=== PATIENT | female | born 1975 | race African-American/Black ===

== ENCOUNTER 2020-01-03 19:18 | Inpatient (IN) | payer OTHER ==
[2020-01-03] MEDS ORDERED: ACETAMINOPHEN TAB 325 MG TAB PO PRN (22:12)
[2020-01-03] MEDS: SODIUM CHLORIDE 0.9% 1,000 ML IV SCH (22:49)
[2020-01-03] MEDS: HALOPERIDOL 1 MG TAB PO SCH (23:17)
[2020-01-04 01:30] VITALS: BP 128/83; PULSE 55; RESP 18; TEMP 98.2
--- NOTE | 2020-01-04 08:28 | HP ---
HISTORY AND PHYSICAL HISTORY OF PRESENT ILLNESS: 44 -year-old female was transferred from [facility] today for psychiatric evaluation due to psychotic behavior, delusional behavior. She apparently took off from the hospital over at [facility] yesterday and they had to catch her. She is not sure what State she is in and she has been going to State to State saying she is looking to drive her car to [place] versus other States. Different times, she is in and out of consciousness, but she is improving with the mental status. She is refusing all kinds of care. She has been started on antibiotics for UTI. Awaiting psychiatry consult for possible mental psychiatric quiñones placement. No records are available on this patient. Apparently she may be from [place]. PAST MEDICAL HISTORY: Past medical history of possible mental disease, history of unclear. MEDICATIONS: Unclear. SOCIAL HISTORY: Unclear. REVIEW OF SYSTEMS: Fourteen point review of systems as mentioned above, otherwise negative. PHYSICAL EXAMINATION: Temp 98.2, pulse 55, respiratory 16 to 18, blood pressure 128/83, 99 on room air. Endocrine BMI is over 40. PSYCHIATRIC: She answers questions appropriately. A little bit confused at times. CARDIOVASCULAR S1, S2. LUNGS: Clear. GI: Distended due to obesity. EXTREMITIES: No cyanosis, clubbing, edema. MUSCULOSKELETAL: Range of motion full times over. ASSESSMENT AND PLAN: 1. Psychotic behavior, probable bipolar versus schizophrenia. Wait for psychiatric workup which is what she needs. 2. Continue with Keflex and Motrin. MMODL / IJN: [id number] /
[2020-01-04] MEDS: HALOPERIDOL 1 MG TAB PO SCH (09:24)
[2020-01-04] MEDS: CEPHALEXIN 250 MG CAP PO SCH ×2 (09:24→12:31)
[2020-01-04] MEDS: SODIUM CHLORIDE 0.9% 1,000 ML IV SCH (09:24)
[2020-01-04 10:23] LABS: Appearance,Urine Clear (Clear); Bacteria,Urine Rare /hpf; Bilirubin,Urine Negative (Negative); Blood,Urine Moderate (Negative); Color,Urine Yellow; Glucose,Urine (UA) Negative (Negative); Ketones,Urine Negative (Negative); Leukocyte Esterase,Urine Negative (Negative); Mucus,Urine Rare /hpf; Nitrite,Urine Negative (Negative); Protein,Urine Negative (Negative); RBC,Urine 8 /hpf (0-5); Specific Gravity,Urine 1.016 (1.001-1.035); Squamous Epithelial Cell,Urine <1 /hpf (0-4); Urobilinogen,Urine <2.0 mg/dL (<2.0); WBC,Urine 2 /hpf (0-5)
--- NOTE | 2020-01-04 13:18 | P.CNNES ---
History of Present Illness Consult date: 01/04/20 Requesting physician: Rajinder Watts Reason for Consult: AMS, psychosis History of Present Illness: Patient is a 44-year-old female, transferred from [facility] for psychiatric evaluation due to psychotic behavior, delusional behavior. As per electronic medical records, it was reported that patient apparently took off from the hospital over the [facility] yesterday and they had to catch her. She is not sure what state she is in and she has been going from state to state saying that she is looking to drive her car to [place] versus other states. At different times, she is in and out of consciousness, but she is improving with the mental status. She is refusing all kinds of care. She has been started on antibiotics for UTI. Patient apparently was exhibiting bizarre behavior yesterday. She has been petitioned. I came to see the patient. Patient was seen in room 525, and sitter Mrs. Alejo was present throughout the encounter. Patient states that she lives in [place] and was visiting from one state to another. She wanted to drive, and see different states, as she was not working. She states that she went to [facility], and was planning to go to [place]. She also states that she has to go to [place] because she has to testify in the Court. Patient states that she did not want to discuss about the court case. Patient states that her car was overworked. She got out of car, feels the car exhaust was high, she got dizzy and almost passed out. EMS was called and she was brought to the hospital, as she was acting different. Patient denies any focal symptoms, headaches. Her UA is negative. Review of records from [facility] showed urine drug screen negative UA negative. CBC with WBC 3.4, hemoglobin 11.9, platelets 204. Chem-20 with slightly elevated AST 38 and normal ALT 23. Electrolytes and renal functions normal. PT/PTT normal. CPK 791. Ethanol level negative. Carboxyhemoglobin 1.1 normal. Magnesium 1.77, TSH 3.031 normal. Patient's vit al signs were blood pressure 141/63 and a second one 121/68 with pulse 58 and patient afebrile. Chest x-ray showed post sternotomy wires with a suboptimal inspiratory effort. No definitive evidence of dea pulmonary edema, and pneumothorax. CT head without contrast on 01/01/2020 is normal. Review of Systems Patient denies headache, denies visual symptoms, numbness tingling focal weakness. Denies chest pain shortness of breath, wheezing cough. Denies abdominal pain nausea vomiting diarrhea. All other review of systems seems to be unremarkable. Past Medical History Past Medical History: No Reported History Additional Past Medical History / Comment(s): Patient unable to report history. History of Any Multi-Drug Resistant Organisms: None Reported Past Surgical History: No Surgical Hx Reported Additional Past Surgical History / Comment(s): Patient unable to report history. Past Anesthesia/Blood Transfusion Reactions: Unable to Obtain Past Psychological History: Unable to Obtain Additional Psychological History / Comment(s): Patient unable to answer. Smoking Status: Unknown if ever smoked Past Alcohol Use History: None Reported Past Drug Use History: Unable to Obtain - Past Family History Mother History Unknown: Yes Family Medical History: Unable to Obtain Father History Unknown: Yes Family Medical History: Unable to Obtain Medications and Allergies Home Medications Medication Instructions Recorded Confirmed Type Unable To Assess [Unable to Assess] 01/03/20 01/03/20 History Allergies Allergy/AdvReac Type Severity Reaction Status Date / Time Unable to Assess Allergy Verified 01/03/20 22:08 Physical Examination - Vital Signs Vital Signs: Vital Signs Temp Pulse Resp BP Pulse Ox 01/04/20 01:29 98.2 F 55 L 18 128/83 99 Intake and Output 01/03/20 01/04/20 01/04/20 22:59 06:59 14:59 Intake Total 1200 1200 Balance 1200 1200 Intake: Oral 1200 1200 Other: Voiding Method Toilet Toilet # Voids 3 1 1 Weight 102.5 kg On examination patient is a middle aged Afro-Guyanese female, in no acute distress. Patient is alert and awake, fully oriented. Patient knows that it is December 2019, and that she is in [facility] in [place]. She states she lives by herself in [place], has no children. Speech and language functions are normal. Attention and concentration and fund of knowledge appears adequate. Patient at times talks completely since a, other times appears delusional, talking about different states as above. No aphasia or dysarthria. On cranial nerve examination pupils are round and reacting, visual kessler are full, extraocular muscles are intact. Face is symmetric, tongue protrudes the midline. Palatal elevation sensation normal. Hearing and shoulder shrug normal. On muscle strength testing there is no pronator drift and the strength is normal in arms and legs distally and proximally reflexes are 1+ and plantars downgoing. Sensory touch is equal. No ataxia for [id number] testing. Tone and bulk of muscles normal. Patient apparently was veering the down back to front. During examination, patient tried to expose herself, and wanted to speak to me personally and the sitter to step out. I informed her that sitter will stay there, and recommended her to cover herself. The sitter Miss Alejo was present throughout the encounter. Results - Laboratory Findings Abnormal Lab Findings: Abnormal Labs 01/04/20 09:00 Urine Blood Moderate H Urine RBC 8 H Urine Bacteria Rare H Urine Mucus Rare H Assessment and Plan Assessment: * Altered mental status, probably due to psychosis. Neurological examination normal. Plan: * No further neurological workup indicated. * Neurologically clear for transfer to mental health unit.
[2020-01-04 14:08] VITALS: BMI 40.0
--- NOTE | 2020-01-04 16:55 | P.CN ---
Psychiatric Consult - . Consult date: 01/04/20 Consult:: IDENTIFYING DATA: The patient is 44-year-old single female referred from medicine service from [facility] for evaluation of psychotic behavior. HISTORY OF PRESENT ILLNESS: I reviewed the medical record and interviewed the patient. She was guarded, suspicious and minimally cooperative. According to record she eloped from [facility] yesterday. She talked about driving her car to the store and "some kind of air" began to blow on her and affected her chest. She is not sure but she thinks the gas may have been carbon monoxide because she felt lightheaded. She went to the emergency room where she remained for 3 days. She would not provide more information about her history of her symptoms. She would not answer questions about her mood thinking or behavior. She denied feeling depressed or anxious. She would not answer questions about psychotic symptoms such as auditory, visual or olfactory hallucinations, ideas reference, thought insertion or thought broadcasting. She denied use of alcohol or drugs. PAST PSYCHIATRIC HISTORY: She denied prior mental health treatment or prior psychiatric hospitalizations. I believe she mentioned something about mental health services while she was in the but would not answer questions. PAST MEDICAL HISTORY: She denied a history of major medical problems.. ALLERGIES: Denied. SUBSTANCE USE HISTORY: She denied history of substance abuse problems. FAMILY PSYCHIATRIC/SUBSTANCE USE HISTORY:. She denied a family history of psychiatric or substance use problems SOCIAL HISTORY: She was guarded about her history. She talked about moving from state to state. She was born in [place] lived in [place]. She came to [place] for an unexplained reason. She referred herself as just visiting with plans to return to [place] for "a court case." She is single and has no children. She served in the [employer] for 8 years and received an honorable discharge. She would not answer questions about her income. MENTAL STATUS EXAM: She presented as an obese casually groomed after Turkish female who was guarded and suspicious. She made eye contact and appeared to attend to the interview. She had psychomotor retardation but no abnormal movements. Her speech was not spontaneous and had decreased rate and rhythm. Her affect was blunted, guarded and suspicious. She did not express suicidal ideation, wishes or homicidal ideation. She denied feeling hopeless, helpless or worthless. She is angry about his continued hospitalization. She did not express clear ideas reference but she tended paranoid ideation. Her t hinking was concrete and associations were not coherent, logical goal directed. She denied hallucinations but at times she appeared to be responding to internal stimuli.. IMPRESSIONS: She is a 44-year-old single female with signs and symptoms suggestive of a psychotic disorder. She is guarded, suspicious and provided little information. She denied a history of psychiatric treatment. She should be treated on an inpatient basis with combination of psychopharmacology and multimodal therapy. DIAGNOSIS: Unspecified psychotic disorder PLAN: Complet a timely clinical certificate to accompany the petition. Transferred to psychiatric unit when medically stable.. 01/04/20 16:45
[2020-01-05] MEDS: HALOPERIDOL 1 MG TAB PO SCH ×2 (00:12→09:53)
[2020-01-05] MEDS: CEPHALEXIN 250 MG CAP PO SCH ×3 (00:12→12:40)
[2020-01-05] MEDS: SODIUM CHLORIDE 0.9% 1,000 ML IV SCH (12:39)
== END 2020-01-05 19:47 | DRG 885 ==
LOC: 5NMEDONC 19:18
PROVIDERS: ADMIT Family Medicine; ATTEND Family Medicine
DX: F29 Unspecified psychosis not due to a substance or known physiological condition (principal); Z68.41 Body mass index [BMI] 40.0-44.9, adult; N39.0 Urinary tract infection, site not specified; E66.9 Obesity, unspecified; Z71.3 Dietary counseling and surveillance
CPT/HCPCS: 81001

== ENCOUNTER 2020-01-05 19:53 | Inpatient (IN) | payer OTHER ==
[2020-01-05 22:07] VITALS: BP 141/87; PULSE 53
[2020-01-06] MEDS ORDERED: MAG HYDROX/AL HYDROX/SIMETH 30 ML CUP PO PRN (07:34)
[2020-01-06] MEDS ORDERED: MAGNESIUM HYDROXIDE 2,400 MG/10 ML CUP PO PRN (07:34)
[2020-01-06] MEDS ORDERED: LORazepam 1 MG TAB PO PRN (07:34)
[2020-01-06] MEDS ORDERED: ACETAMINOPHEN TAB 325 MG TAB PO PRN (07:34)
[2020-01-06] MEDS: NICOTINE 14MG/24HR PATCH TRANSDERM SCH (09:42)
--- NOTE | 2020-01-06 13:59 | P.HP ---
Psychiatric H&P - . H&P Date: 01/06/20 History & Physical: Allergies Allergy/AdvReac Type Severity Reaction Status Date / Time Unable to Assess Allergy Verified 01/03/20 22:08 Vital Signs Temp 97.6 F 01/05/20 21:29 Pulse 53 L 01/05/20 21:29 Resp 16 01/05/20 21:29 BP 141/87 01/05/20 21:29 Pulse Ox 99 01/05/20 21:29 Intake & Output 01/05/20 01/06/20 01/06/20 18:59 06:59 18:59 Weight 100.698 kg 01/06/20 10:39 IDENTIFYING DATA: The patient is 44-year-old single female referred from medicine service from [facility] for evaluation of psychotic behavior. Patient is single and is currently homeless and living in hotels and has no kids and collects a pension. HISTORY OF PRESENT ILLNESS: Patient was initially transferred to medical floors and seen by Dr. Loo for psychiatric consultation. As taken from Dr. Tim lambert's psychiatric consult dictation note, "Patient was guarded, suspicious and minimally cooperative. According to record she eloped from [facility]. She talked about driving her car to the store and "some kind of air" began to blow on her and affected her chest. She is not sure but she thinks the gas may have been carbon monoxide because she felt lightheaded. She went to the emergency room where she remained for 3 days. She would not provide more information about her history of her symptoms. She would not answer questions about her mood thinking or behavior. She denied feeling depressed or anxious. She would not answer questions about psychotic symptoms such as auditory, visual or olfactory hallucinations, ideas reference, thought insertion or thought broadcasting" Patient was seen today by chief writer and appeared to have poor hygiene and grooming. Patient was endorsing paranoia and was guarded/evasive during conversation. Patient was making bizarre hand gestures at times and making inappropriate statements or chief writer. Patient spoke about "exhaust coming out of my car" and states that she was inhaling it and took it to several different mechanics before coming into the hospital for feeling "dizzy". She states that she felt "overheated" and also a "pounding in my body". She also spoke about having to go do "cord in [place]". She appeared to have poor insight and judgment and was refusing medications. She states [place] however did not explain why or where she came from. She states her sleep is "okay" and claims to have a fair mood. She denies any auditory or visual hallucinations, denies any suicidal or homicidal ideations intent or plan. Patient was alert and oriented 3 today. She denied any recreational drug use however claims to use cigarettes. PAST PSYCHIATRIC HISTORY: She denied prior mental health treatment or prior psychiatric hospitalizations and was fairly guarded about her past. PAST MEDICAL HISTORY: She denied a history of major medical problems.. ALLERGIES: Denied. SUBSTANCE USE HISTORY: She denied history of substance abuse problems. She claims that she smokes cigarettes daily. FAMILY PSYCHIATRIC/SUBSTANCE USE HISTORY: She denied a family history of psychiatric or substance use problems SOCIAL HISTORY: She was guarded about her history. She talked about moving from state to state. She was born in [place] lived in [place]. She came to [place] for an unexplained reason. She referred herself as just visiting with plans to return to [place] for "a court case." She is single and has no children. She served in the [employer] for 8 years and received an honorable discharge. She claims that she collects a pension. MENTAL STATUS EXAM: General Appearance: Patient appears to be stated age is alert, difficult to redirect and inappropriate at times. Paranoid/evasive. Patient appears to have poor hygiene and grooming. Behavior: Patient is seated without any agitated behavior. Paranoid/evasive. Inappropriate. Speech: Patient's speech is fluent and nonpressured. Mood/Affect: Patient reports their mood is "okay", affect is congruent and constricted. Suicidality/Homicidality: Patient denies having any homicidal ideation intent or plan. Denies any suicidal ideations intent or plan Perceptions: Patient denies any visual hallucinations and denies any auditory hallucinations Though content/process: Endorsed several different delusions, religiously preoccupied, argumentative. Memory and concentration: AOX3, grossly intact for the purposes of this session. Can spell "WORLD" backwards Judgment and insight: poor STRENGTHS/WEAKNESSES: strength is that patient is resilient. Weakness is that patient has poor judgment and is impulsive INTELLECT: average IMPRESSIONS: Psychosis unspecified [place] nicotine dependence PLAN: -Patient is admitted under involuntary status to [facility] for stabilization of psychiatric symptoms and safety. Patient refused to sign for medication consent and was placed in chart. A second certification was completed and along with petition will be filed for court. -Medications : Will start patient on paliperidone by mouth 3 mg daily at bedtime for psychosis. -Ativan and Geodon PRN for agitation/aggression -UDS, UA and routine blood work currently pending. -Patient was informed of the risks, benefits and side effects of the medication and patient verbally consented to taking the medications. Patient signed med consent form and was placed in chart. -Internal Medicine consult to perform medical evaluation and physical. -NRT - nicotine patch -SW on board for discharge planning. Encourage patient to participate in groups to work on coping skills. Will await court hearing and deferral date. 01/06/20 10:43 01/06/20 10:44 01/06/20 13:53
[2020-01-06] MEDS: PALIPERIDONE 3 MG TAB.ER.24 PO SCH (22:15)
[2020-01-07] MEDS: NICOTINE 14MG/24HR PATCH TRANSDERM SCH (09:11)
--- NOTE | 2020-01-07 10:06 | P.PN ---
Progress Note - Text Progress Note Date: 01/07/20 Interval History: Patient was seen laying down in her bed this morning and was initially resistant and questioned who public relations writer was in his "credentials" before being agreeable to speak with public relations writer in the office. Patient was mumbling and speaking to herself on the way to the office. Patient was responding to internal stimuli in the office and answered questions inappropriately at times. Patient was also making bizarre hand gestures in touching her toes and shoes. She continues to be paranoid and guarded/evasive during conversation. She continues to demonstrate poor insight and judgment and claims that she is refusing her medications until "I see my day in court". She claims that she slept last night and has not been going to groups and not interacting with other patients. She continues to have poor hygiene and grooming. At this time patient denies any suicidal or homical ideations, intent or plan. Patient denies any auditory, visual hallucinations. Patient denies any side effects from the medications and has been compliant with meds. Mental Status Exam: General Appearance: Patient appears to be stated age is alert, difficult to redirect and inappropriate at times. Responding to internal stimuli. Patient appears to have poor hygiene and grooming. Behavior: Patient is seated without any agitated behavior. Paranoid/evasive. Responding to internal stimuli. Speech: Patient's speech is fluent and nonpressured. Mood/Affect: Patient reports their mood is "fine", affect is congruent and constricted. Suicidality/Homicidality: Patient denies having any homicidal ideation intent or plan. Denies any suicidal ideations intent or plan Perceptions: Patient denies any visual hallucinations and denies any auditory hallucinations Though content/process: Endorsed several different delusions, religiously preoccupied, argumentative. Paranoid. Memory and concentration: AOX3, grossly intact for the purposes of this session. Judgment and insight: poor Assessment Psychosis unspecified Nicotine dependence Plan: -Patient continues to meet criteria for inpatient psychiatric admission for symptom stabilization and safety. Patient has refused to sign for voluntary admission and is refusing medications and treatment. Patient refused to sign for medication consent form and is placed in chart. Certification and petition were filed for court and awaiting hearing date and deferral date. -Medications: Continue with paliperidone by mouth 3 mg daily at bedtime for psychosis. -When necessary Ativan and Geodon for agitation/aggression. -UDS, UA and routine blood work are currently being refused by patient. -NRT - nicotine patch -SW on board for discharge planning. Encouraged the patient to participate in milieu. Will await court hearing and deferral date.
--- NOTE | 2020-01-07 16:11 | CONS ---
CONSULTATION DATE OF SERVICE: 01/07/2020 This white female was admitted with psychotic behavior, delusional, bizarre behavior, transferred from another hospital for psychiatric recommendations. She refused any medications and blood work over there. She tried to run out of the hospital and was caught by Security, at which time she was sent back over her psychotic care; cannot get a clear idea where she is from. She has mentioned 3 or 4 states she is trying to get to and is very confused about what she has been doing. She is living in hotels. No kidneys. Collects a pension. Single, as far as we can tell. She states she is diabetic, but we have not been able to confirm taking metformin at home because she has refused any blood work. Psych history: She says there is nothing wrong with her except for some possible diabetes. DENIES ANY ALLERGIES TO MEDICINES. Her behavior is paranoid, evasive, inappropriate. CARDIOVASCULAR: S1, S2. LUNGS: Clear. GI: Distended. Obesity. ENDOCRINE: BMI is over 40. ASSESSMENT: Possible psychotic behavior with bizarre ideations. Try to get blood work ordered on her. Await psych consult. Medically I think she is stable. Vital signs are okay. Please see further orders. MMODL / IJN: [id number] /
[2020-01-07] MEDS: PALIPERIDONE 3 MG TAB.ER.24 PO SCH (20:10)
[2020-01-08] MEDS: NICOTINE 14MG/24HR PATCH TRANSDERM SCH (09:49)
--- NOTE | 2020-01-08 10:10 | P.PN ---
Progress Note - Text Progress Note Date: 01/08/20 Interval History: Patient was seen laying down in her bed this morning and was argumentative and hostile with speech writer. She was noted to be responding to internal stimuli. She had a loud tone of voice and told the speech writer that "if you're not going to discharge me today and there is nothing to talk about and I'm not talking to you" and then proceeded to tell speech writer to leave her room and closed the door, ending the encounter. Mental Status Exam: General Appearance: Patient appears to be stated age is alert, difficult to redirect, demanding. Responding to internal stimuli. Patient appears to have poor hygiene and grooming. Behavior: Patient is seated without any agitated behavior. Paranoid/evasive. Demanding. Speech: Patient's speech is fluent and nonpressured. Mood/Affect: Unable to assess Suicidality/Homicidality: Unable to assess Perceptions: Unable to assess Though content/process: argumentative. Paranoid. Memory and concentration: AOX3, grossly intact for the purposes of this session. Judgment and insight: poor Assessment Psychosis unspecified Nicotine dependence Plan: -Patient continues to meet criteria for inpatient psychiatric admission for symptom stabilization and safety. Patient has refused to sign for voluntary admission and is refusing medications and treatment. Patient refused to sign for medication consent form and is placed in chart. Deferral date set for today and full court hearing to be determined. -Medications: Continue with paliperidone by mouth 3 mg daily at bedtime for psychosis. Patient is currently refusing this medication. -When necessary Ativan and Geodon for agitation/aggression. -UDS, UA and routine blood work are currently being refused by patient. -NRT - nicotine patch -SW on board for discharge planning. Encouraged the patient to participate in milieu. Deferral date set for today and full court hearing to be determined.
[2020-01-08] MEDS: PALIPERIDONE 3 MG TAB.ER.24 PO SCH (21:44)
[2020-01-09 05:05] VITALS: RESP 18
--- NOTE | 2020-01-09 08:00 | P.PN ---
Progress Note - Text Progress Note Date: 01/09/20 Interval History: Patient was seen laying down in her bed this morning and was resistant once a gain to speak with engineering technical writer. She was noted to be responding to internal stimuli and speaking to herself at times. Patient once again was demanding to be discharged from the hospital. She continues to have poor insight and judgment. She demanded several times to also speak with the "patient rights advocate" claiming that she is being held in the hospital "against my will". Employee Benefits Coordinator explained the process and how Court hearing will be held next week and patient continues to have a poor understanding of this and was requesting to speak to her marriage and family therapist. Patient abruptly ended the encounter and told engineering technical writer to get out of her room. Mental Status Exam: General Appearance: Patient appears to be stated age is alert, difficult to redirect, demanding. Responding to internal stimuli. Patient appears to have poor hygiene and grooming. Behavior: Patient is seated without any agitated behavior. Paranoid/evasive. Demanding. Speech: Patient's speech is fluent and nonpressured. Mood/Affect: Unable to assess Suicidality/Homicidality: Unable to assess Perceptions: Unable to assess Though content/process: argumentative. Paranoid. Memory and concentration: AOX3, grossly intact for the purposes of this session. Judgment and insight: poor Assessment Psychosis unspecified Nicotine dependence Plan: -Patient continues to meet criteria for inpatient psychiatric admission for symptom stabilization and safety. Patient has refused to sign for voluntary admission and is refusing medications and treatment. Patient refused to sign for medication consent form and is placed in chart. Court date set for 01/15/2020. -Medications: Continue with paliperidone by mouth 3 mg daily at bedtime for psychosis. Patient is currently refusing this medication. -When necessary Ativan and Geodon for agitation/aggression. -UDS, UA and routine blood work are currently being refused by patient. -NRT - nicotine patch -SW on board for discharge planning. Encouraged the patient to participate in milieu. Court date set for 01/15/2020.
[2020-01-09] MEDS: NICOTINE 14MG/24HR PATCH TRANSDERM SCH (09:12)
[2020-01-09] MEDS: PALIPERIDONE 3 MG TAB.ER.24 PO SCH (21:49)
[2020-01-10] MEDS: NICOTINE 14MG/24HR PATCH TRANSDERM SCH (09:50)
--- NOTE | 2020-01-10 09:53 | P.PN ---
Progress Note - Text Progress Note Date: 01/10/20 Interval History: Patient was seen laying down in her bed this morning and appeared to have poor hygiene and grooming. Patient was also appearing to respond to internal stimuli before jingle writer was able to speak to her and was speaking to herself very rapidly. Patient was directable to come to speak to jingle writer in the office and was continuing to speak herself in the hallways. The patient asked jingle writer "how his class today" and was acting bizarre and then also asked when the court date was and when jingle writer told patient that the court date was next monday then patient states that "there is nothing to talk about today than" and then abruptly ended the interview by leaving the room. Mental Status Exam: General Appearance: Patient appears to be stated age is alert, difficult to redirect, Responding to internal stimuli. Patient appears to have poor hygiene and grooming. Behavior: Patient is seated without any agitated behavior. Paranoid/evasive. Bizarre. Speech: Patient's speech is fluent and nonpressured. Mood/Affect: Unable to assess Suicidality/Homicidality: Unable to assess Perceptions: Unable to assess Though content/process: argumentative. Paranoid. Bizarre. Memory and concentration: AOX3, grossly intact for the purposes of this session. Judgment and insight: poor Assessment Psychosis unspecified Nicotine dependence Plan: -Patient continues to meet criteria for inpatient psychiatric admission for symptom stabilization and safety. Patient has refused to sign for voluntary admission and is refusing medications and treatment. Patient refused to sign for medication consent form and is placed in chart. Court date set for 01/15/2020. -Medications: Continue with paliperidone by mouth 3 mg daily at bedtime for psychosis. Patient is currently refusing this medication. -When necessary Ativan and Geodon for agitation/aggression. -UDS, UA and routine blood work are currently being refused by patient. -NRT - nicotine patch -SW on board for discharge planning. Encouraged the patient to participate in milieu. Court date set for 01/15/2020.
[2020-01-10] MEDS: PALIPERIDONE 3 MG TAB.ER.24 PO SCH (21:10)
[2020-01-10] MEDS: ZIPRASIDONE 20 MG VIAL IM PRN (21:14)
[2020-01-11 06:44] VITALS: TEMP 0
--- NOTE | 2020-01-11 09:26 | P.PN ---
Progress Note - Text Progress Note Date: 01/11/20 Interval History: Patient was seen wandering the hallways this morning and came up to the nurse's desk. Patient was asking for another towel and acknowledges scientific technical writer briefly however when scientific technical writer approached patient to speak with her patient ignored scientific technical writer several times and was responding to internal stimuli and walked away from scientific technical writer saying "I'm not talking to you". Patient received a PRN Geodon last night for agitation. Mental Status Exam: General Appearance: Patient appears to be stated age is alert, difficult to redirect, Responding to internal stimuli. Patient appears to have poor hygiene and grooming. Behavior: Patient is seated without any agitated behavior. Bizarre. Speech: Patient's speech is fluent and nonpressured. Mood/Affect: Unable to assess Suicidality/Homicidality: Unable to assess Perceptions: Unable to assess Though content/process: argumentative. Paranoid. Bizarre. Memory and concentration: AOX3, grossly intact for the purposes of this session. Judgment and insight: poor Assessment Psychosis unspecified Nicotine dependence Plan: -Patient continues to meet criteria for inpatient psychiatric admission for symptom stabilization and safety. Patient has refused to sign for voluntary admission and is refusing medications and treatment. Patient refused to sign for medication consent form and is placed in chart. Court date set for 01/15/2020. -Medications: Continue with paliperidone by mouth 3 mg daily at bedtime for psychosis. Patient is currently refusing this medication. -When necessary Ativan and Geodon for agitation/aggression. -UDS, UA and routine blood work are currently being refused by patient. -NRT - nicotine patch -SW on board for discharge planning. Encouraged the patient to participate in milieu. Court date set for 01/15/2020.
[2020-01-11] MEDS: NICOTINE 14MG/24HR PATCH TRANSDERM SCH (09:34)
[2020-01-11] MEDS: PALIPERIDONE 3 MG TAB.ER.24 PO SCH (22:43)
[2020-01-12] MEDS: NICOTINE 14MG/24HR PATCH TRANSDERM SCH (09:20)
--- NOTE | 2020-01-12 09:46 | P.PN ---
Progress Note - Text Progress Note Date: 01/12/20 Interval History: Patient was seen laying down in her bed this morning and appeared to be asleep and difficult to awaken however patient was continuing to be responding to internal stimuli and was difficult to direct during conversation. Patient refused to answer questions and asked typewriter mechanic to leave because "it's not my court date so leave me alone". Patient is continuing to refuse her medications. Mental Status Exam: General Appearance: Patient appears to be stated age is lethargic, difficult to redirect, Responding to internal stimuli. Patient appears to have poor hygiene and grooming. Behavior: Patient is seated without any agitated behavior. Bizarre. Speech: Patient's speech is fluent and nonpressured. Mood/Affect: Unable to assess Suicidality/Homicidality: Unable to assess Perceptions: Unable to assess Though content/process: argumentative. Paranoid. Bizarre. Memory and concentration: AOX3, grossly intact for the purposes of this session. Judgment and insight: poor Assessment Psychosis unspecified Nicotine dependence Plan: -Patient continues to meet criteria for inpatient psychiatric admission for symptom stabilization and safety. Patient has refused to sign for voluntary admission and is refusing medications and treatment. Patient refused to sign for medication consent form and is placed in chart. Court date set for 01/15/2020. -Medications: Continue with paliperidone by mouth 3 mg daily at bedtime for psychosis. Patient is currently refusing this medication. -When necessary Ativan and Geodon for agitation/aggression. -UDS, UA and routine blood work are currently being refused by patient. We'll attempt to reorder once again today. -NRT - nicotine patch -SW on board for discharge planning. Encouraged the patient to participate in milieu. Court date set for 01/15/2020.
[2020-01-12] MEDS: ZIPRASIDONE 20 MG VIAL IM PRN (13:29)
[2020-01-12] MEDS: PALIPERIDONE 3 MG TAB.ER.24 PO SCH (22:07)
[2020-01-13] MEDS: NICOTINE 14MG/24HR PATCH TRANSDERM SCH (09:30)
--- NOTE | 2020-01-13 11:31 | P.PN ---
Progress Note - Text Progress Note Date: 01/13/20 Interval History: Patient was seen laying down in her bed this morning and appeared to be more a wake today however was continuing to be responding to internal stimuli and was difficult to engage in the conversation. Patient was talking to herself. She asked what day was today and procedure writer responded that it is Monday and patient states that "but it was Monday 2 days ago so you are lying to me". She states that she is waiting until court to talk to procedure writer and claims that "I'm not answering any questions you can leave now". Patient is continuing to refuse her medications. Mental Status Exam: General Appearance: Patient appears to be stated age is lethargic, difficult to redirect, Responding to internal stimuli. Patient appears to have poor hygiene and grooming. Behavior: Patient is seated without any agitated behavior. Bizarre. Speech: Patient's speech is fluent and nonpressured. Mood/Affect: Unable to assess Suicidality/Homicidality: Unable to assess Perceptions: Unable to assess Though content/process: argumentative. Paranoid. Bizarre. Memory and concentration: AOX3, grossly intact for the purposes of this session. Judgment and insight: poor Assessment Psychosis unspecified Nicotine dependence Plan: -Patient continues to meet criteria for inpatient psychiatric admission for symptom stabilization and safety. Patient has refused to sign for voluntary admission and is refusing medications and treatment. Patient refused to sign for medication consent form and is placed in chart. Court date set for 01/15/2020. -Medications: Continue with paliperidone by mouth 3 mg daily at bedtime for psychosis. Patient is currently refusing this medication. -When necessary Ativan and Geodon for agitation/aggression. -UDS, UA and routine blood work are currently being refused by patient. -NRT - nicotine patch -SW on board for discharge planning. Encouraged the patient to participate in milieu. Court date set for 01/15/2020.
[2020-01-13 14:16] VITALS: BMI 39.2
[2020-01-13] MEDS: PALIPERIDONE 3 MG TAB.ER.24 PO SCH (20:03)
[2020-01-14] MEDS: NICOTINE 14MG/24HR PATCH TRANSDERM SCH (09:09)
--- NOTE | 2020-01-14 09:48 | P.PN ---
Progress Note - Text Progress Note Date: 01/14/20 Interval History: Patient was seen laying down in her bed this morning and appeared to be awake however was continuing to be responding to internal stimuli and appeared to be speaking to herself. She continues to be difficult to engage with an conversation and ignores publications writer's questions for the most part. She asked publications writer today "is it court date today" and publications writer responded saying that it was scheduled for tomorrow and patient states that okay goodbye" and turned her head around and refused to answer anymore questions. It was noted in patient's room that there are several drawings and writings on the wall made with jada. Patient continues to refuse her medications and has poor hygiene and grooming. Mental Status Exam: General Appearance: Patient appears to be stated age is alert, difficult to redirect, Responding to internal stimuli. Patient appears to have poor hygiene and grooming. Behavior: Patient is seated without any agitated behavior. Bizarre. Speech: Patient's speech is fluent and nonpressured. Mood/Affect: Unable to assess Suicidality/Homicidality: Unable to assess Perceptions: Unable to assess Though content/process: argumentative. Paranoid. Bizarre. Memory and concentration: AOX3, grossly intact for the purposes of this session. Judgment and insight: poor Assessment Psychosis unspecified Nicotine dependence Plan: -Patient continues to meet criteria for inpatient psychiatric admission for symptom stabilization and safety. Patient has refused to sign for voluntary admission and is refusing medications and treatment. Patient refused to sign for medication consent form and is placed in chart. Court date set for 01/15/2020. -Medications: Continue with paliperidone by mouth 3 mg daily at bedtime for psychosis. Patient is currently refusing this medication. -When necessary Ativan and Geodon for agitation/aggression. -NRT - nicotine patch -SW on board for discharge planning. Encouraged the patient to participate in milieu. Court date set for 01/15/2020.
[2020-01-14] MEDS: PALIPERIDONE 3 MG TAB.ER.24 PO SCH (20:33)
[2020-01-15] MEDS: NICOTINE 14MG/24HR PATCH TRANSDERM SCH (08:37)
--- NOTE | 2020-01-15 10:03 | P.PN ---
Progress Note - Text Progress Note Date: 01/15/20 Interval History: Patient was seen in her room this morning and came to the door when the sports book writer knocked on it and asked to speak with the patient. Patient was noted to be once again responding to internal stimuli speaking to herself in full conversations. She continues to be difficult to engage with an conversation and ignores sports book writer's questions for the most part. She asked sports book writer once again if it was time to go to court and spoke about wanting to speak to her parcel wrapper before she speaks to sports book writer. She states that "I don't want to talk to you unless I have my parcel wrapper now go away". Patient continues to refuse her medications and has poor hygiene and grooming. Mental Status Exam: General Appearance: Patient appears to be stated age is alert, difficult to redirect, Responding to internal stimuli. Patient appears to have poor hygiene and grooming. Behavior: Patient is seated without any agitated behavior. Bizarre. Demanding. Speech: Patient's speech is fluent and nonpressured. Mood/Affect: Unable to assess Suicidality/Homicidality: Unable to assess Perceptions: Unable to assess Though content/process: argumentative. Paranoid. Bizarre. Memory and concentration: AOX3, grossly intact for the purposes of this session. Judgment and insight: poor Assessment Psychosis unspecified Nicotine dependence Plan: -Patient continues to meet criteria for inpatient psychiatric admission for symptom stabilization and safety. Patient has refused to sign for voluntary admission and is refusing medications and treatment. Patient refused to sign for medication consent form and is placed in chart. Court date set for 01/15/2020. -Medications: Continue with paliperidone by mouth 3 mg daily at bedtime for psychosis. Patient is currently refusing this medication. -When necessary Ativan and Geodon for agitation/aggression. -NRT - nicotine patch -SW on board for discharge planning. Encouraged the patient to participate in milieu. Court date set for 01/15/2020.
[2020-01-15] MEDS: PALIPERIDONE 3 MG TAB.ER.24 PO SCH (21:49)
[2020-01-16] MEDS: NICOTINE 14MG/24HR PATCH TRANSDERM SCH (09:53)
--- NOTE | 2020-01-16 10:04 | P.PN ---
Progress Note - Text Progress Note Date: 01/16/20 Interval History: Patient was seen in her room this morning responding to internal stimuli speak ing and laughing to herself. She continues to be difficult to engage with in conversation and is very dismissive. Patient continues to refuse her medications and has poor hygiene and grooming. Patient was argumentative with designer writer about the court proceedings and states that she is not going to take her medications and asked designer writer to get her a inpatient and stated "I know my rights" and proceeded to tolerate her to leave the room and stopped communicating with him. Mental Status Exam: General Appearance: Patient appears to be stated age is alert, difficult to redirect, Responding to internal stimuli. Patient appears to have poor hygiene and grooming. Behavior: Patient is seated without any agitated behavior. Bizarre. Demanding and argumentative. Speech: Patient's speech is fluent and nonpressured. Mood/Affect: Unable to assess Suicidality/Homicidality: Unable to assess Perceptions: Unable to assess Though content/process: argumentative. Paranoid. Bizarre. Memory and concentration: AOX3, grossly intact for the purposes of this session. Judgment and insight: poor Assessment Psychosis unspecified Nicotine dependence Plan: -Patient continues to meet criteria for inpatient psychiatric admission for symptom stabilization and safety. Patient refused to sign for medication consent form and is placed in chart. Patient had a court hearing on 01/15/2020 which resulted in a treatment order. -Medications: Increased paliperidone by mouth 3 mg twice a day for psychosis. Ordered haloperidol 3 mg twice a day IM when necessary if patient refuses oral invega medication. -When necessary Ativan and Geodon for agitation/aggression. -NRT - nicotine patch -SW on board for discharge planning. Encouraged the patient to participate in milieu. Patient is currently on a active treatment order which was issued on 01/15/2020, currently awaiting the copy of the order to present to patient.
[2020-01-16] MEDS: HALOPERIDOL LACTATE 5 MG/ML 1 ML VIAL IM PRN ×2 (11:29→22:47)
[2020-01-16] MEDS: PALIPERIDONE 3 MG TAB.ER.24 PO SCH ×3 (11:29→21:49)
[2020-01-16] MEDS ORDERED: BENZTROPINE 2 MG/2 ML AMP IM STA (22:09)
[2020-01-17] MEDS: NICOTINE 14MG/24HR PATCH TRANSDERM SCH ×2 (09:37→09:51)
[2020-01-17] MEDS: PALIPERIDONE 3 MG TAB.ER.24 PO SCH ×3 (09:37→22:01)
--- NOTE | 2020-01-17 09:49 | P.PN ---
Progress Note - Text Progress Note Date: 01/17/20 Interval History: Patient was seen in her room this morning responding to internal stimuli. Lakshmi albert once again refused to get out of bed to speak with television writer however was more willing to speak with television writer today at bedside. She answered some questions appropriately and states that she slept well last night. She continues to be preoccupied with her medications and giving various reasons as to why she does not want to take the paliperidone stating that "I can't take anything that has an I and a V in it" and then began rambling about a previous surgery on her neck which was illogical and disorganized. It was noted that patient refused her medications yesterday and received Haldol IM however this morning patient did take the paliperidone by mouth and was encouraged to do so. Patient was also asking several questions about when she can be discharged. Patient was argumentative with television writer at times. She denies any suicidal homicidal ideations intent or plan and denies any auditory or visual hallucinations. Mental Status Exam: General Appearance: Patient appears to be stated age is alert, mildly more directable, continues to be argumentative, Responding to internal stimuli. Patient appears to have poor hygiene and grooming. Behavior: Patient is seated without any agitated behavior. Bizarre. argumentative. Speech: Patient's speech is fluent and nonpressured. Mood/Affect: States her mood is "good" affect is constricted Suicidality/Homicidality: Denies Perceptions: Does not endorse any auditory or visual hallucinations at this time. Though content/process: argumentative. Paranoid. Bizarre. Disorganized and rambles at times. Memory and concentration: AOX3, grossly intact for the purposes of this session. Judgment and insight: poor Assessment Psychosis unspecified Nicotine dependence Plan: -Patient continues to meet criteria for inpatient psychiatric admission for symptom stabilization and safety. Patient refused to sign for medication consent form and is placed in chart. Patient had a court hearing on 01/15/2020 which resulted in a treatment order. -Medications: Continue with paliperidone by mouth 3 mg twice a day for psychosis. Increased haloperidol 4 mg twice a day IM when necessary if patient refuses oral invega medication. Added on Cogentin 0.5 mg twice a day when necessary IM for EPS prophylaxis. -When necessary Ativan and Geodon for agitation/aggression. -NRT - nicotine patch -SW on board for discharge planning. Encouraged the patient to participate in milieu. Patient is currently on a active treatment order which was issued on 01/15/2020. We'll continue to work with patient to improve her symptoms and her psychosis and prepare patient for discharge when she is stable.
[2020-01-17] MEDS: BENZTROPINE 2 MG/2 ML AMP IM PRN ×2 (09:55→22:43)
[2020-01-17] MEDS: HALOPERIDOL LACTATE 5 MG/ML 1 ML VIAL IM PRN ×2 (09:55→22:36)
[2020-01-18] MEDS: PALIPERIDONE 3 MG TAB.ER.24 PO SCH ×4 (09:39→22:13)
[2020-01-18] MEDS: NICOTINE 14MG/24HR PATCH TRANSDERM SCH (09:42)
[2020-01-18] MEDS: BENZTROPINE 2 MG/2 ML AMP IM PRN (09:44)
[2020-01-18] MEDS: HALOPERIDOL LACTATE 5 MG/ML 1 ML VIAL IM PRN (09:45)
--- NOTE | 2020-01-18 13:46 | P.PN ---
Progress Note - Text Progress Note Date: 01/18/20 Interval history: Patient is seen in [facility] [place] today. Says she slept about 5 or 6 hours. She does describe feeling tired today. Chest she is eating some but the food makes her sick and makes reference to the air making her sick. She inquires regarding discharge today, when she learns that she is not being discharged she terminates the session. Mental status exam: She is agreeable to come to the interview room, is concerned about sitting in the chair because of something being on the chair and then stands during the session. Her mood she describes that she wants to go home. She does not verbalize any thoughts of harm to self or others. She inquires regarding if she is going home and when she learned that she is not being discharged today she terminates the session. Plan: We'll maintain current psychotropic medication regimen. Continue to monitor for any medication side effects and monitor her ongoing response to treatment.
[2020-01-19] MEDS: NICOTINE 14MG/24HR PATCH TRANSDERM SCH (09:40)
[2020-01-19] MEDS: PALIPERIDONE 3 MG TAB.ER.24 PO SCH ×2 (09:40→20:29)
--- NOTE | 2020-01-19 10:50 | P.PN ---
Progress Note - Text Progress Note Date: 01/19/20 Interval history: Patient is seen in [facility] today. She reports she slept about 6 hours last night. She makes reference to the food making her sick but she is eating enough. She does inquire regarding discharge. She does not seem to verbalize any adverse psychotropic medication side effects. Mental status exam: She is alert and cooperative with the interview. Her affect overall is restricted. Her mood she describes is about a 4. She denies any thoughts of harm to self or others. She denies any hallucinations. She does not display any agitation. Plan: Patient will be maintained on current psychotropic medication regimen. Continue to monitor for any medication side effects and monitor her ongoing response to treatment.
[2020-01-20] MEDS ORDERED: HALOPERIDOL LACTATE 5 MG/ML 1 ML VIAL IM PRN (10:02)
--- NOTE | 2020-01-20 10:06 | P.PN ---
Progress Note - Text Progress Note Date: 01/20/20 Interval History: Patient was seen in her room this morning and was more directable and agreeable to speak to documentation writer in the office today. Patient appeared to be mildly more appropriate and less hostile with documentation writer however continues to be focused on discharge. Patient continues to have poor reality testing and is fixated on her medications. She claims that she does not need to be on medications and does not need to be in the hospital. Patient spoke a bit more today about why she was in [place] and states that she had to "do a side trip" before going to [place]. When questioned more about her reasons for being in [place] she states that "what? Im not allowed to travel". Patient is not responding to internal stimuli at this time. She states that the medication is making her feel somewhat drowsy however she is continuing to take it. Patient was more organized in her thought process and appeared to be mildly less paranoid today. States that she was able sleep throughout the night. She has not been going to groups however was encouraged to do so. Patient was also asking several questions about when she can be discharged. Patient was argumentative with documentation writer at times. She denies any suicidal homicidal ideations intent or plan and denies any auditory or visual hallucinations. Mental Status Exam: General Appearance: Patient appears to be stated age is alert, mildly more directable, continues to be argumentative. Patient appears to have poor hygiene and grooming. Behavior: Patient is seated without any agitated behavior. Bizarre. less argumentative. Speech: Patient's speech is fluent and nonpressured. Mood/Affect: States her mood is "ok" affect is constricted Suicidality/Homicidality: Denies Perceptions: Does not endorse any auditory or visual hallucinations at this time. Though content/process: argumentative. Less paranoid today and less bizarre. More goal oriented. He continues to be paranoid. Memory and concentration: AOX3, grossly intact for the purposes of this session. Judgment and insight: poor, mildly improving. Assessment Psychosis unspecified Nicotine dependence Plan: -Patient continues to meet criteria for inpatient psychiatric admission for symptom stabilization and safety. Patient refused to sign for medication consent form and is placed in chart. Patient had a court hearing on 01/15/2020 which resulted in a treatment order. -Medications: Increased paliperidone by mouth 3 mg daily +6 mg daily at bedtime for psychosis. Increased haloperidol 5 mg twice a day IM when necessary if patient refuses oral invega medication. Added on Cogentin 0.5 mg twice a day when necessary IM for EPS prophylaxis. Patient will need to be transitioned onto Invega Sustenna prior to discharge. -When necessary Ativan and Geodon for agitation/aggression. -NRT - nicotine patch -SW on board for discharge planning. Encouraged the patient to participate in milieu. Patient is currently on a active treatment order which was issued on 01/15/2020. We'll continue to work with patient to improve her symptoms and her psychosis and prepare patient for discharge when she is stable.
[2020-01-20] MEDS: PALIPERIDONE 3 MG TAB.ER.24 PO SCH (10:21)
[2020-01-20] MEDS: NICOTINE 14MG/24HR PATCH TRANSDERM SCH (10:25)
[2020-01-20] MEDS: PALIPERIDONE 6 MG TAB.ER.24 PO SCH (21:09)
[2020-01-21] MEDS: NICOTINE 14MG/24HR PATCH TRANSDERM SCH (09:12)
[2020-01-21] MEDS: PALIPERIDONE 3 MG TAB.ER.24 PO SCH (09:21)
--- NOTE | 2020-01-21 09:50 | P.PN ---
Progress Note - Text Progress Note Date: 01/21/20 Interval History: Patient was seen in her room this morning and was more directable and agreeable to speak to administrative underwriter in the office today. Patient appeared to be mildly more appropriate with administrative underwriter during conversation. She continues to have poor hygiene and grooming. She was not responding to internal stimuli today. She continues to have poor reality testing and stated that she has been taking her medications and was focused on discharge. She continues to state that she was on her way to [place] and claims that now she stopped in [place] to visit the "tourist attractions" before coming to [place] for "a vacation". When asked to describe more about why she left [place] patient became defensive and evasive. She continues to endorse some paranoia. Patient was more organized in her thought process. She states that the medication is helping her "think clearer". States that she was able sleep throughout the night. She has not been going to groups however was encouraged to do so. Patient was argumentative with administrative underwriter at times. She denies any suicidal homicidal ideations intent or plan and denies any auditory or visual hallucinations. Mental Status Exam: General Appearance: Patient appears to be stated age is alert, mildly more directable, continues to be argumentative. Patient appears to have poor hygiene and grooming. Behavior: Patient is seated without any agitated behavior. less argumentative. Defensive/guarded. Speech: Patient's speech is fluent and nonpressured. Mood/Affect: States her mood is "fine" affect is constricted Suicidality/Homicidality: Denies Perceptions: Does not endorse any auditory or visual hallucinations at this time. Though content/process: argumentative. Less paranoid today and less bizarre. More goal oriented Memory and concentration: AOX3, grossly intact for the purposes of this session. Judgment and insight: poor, mildly improving. Assessment Psychosis unspecified Nicotine dependence Plan: -Patient continues to meet criteria for inpatient psychiatric admission for symptom stabilization and safety. Patient refused to sign for medication consent form and is placed in chart. Patient had a court hearing on 01/15/2020 which resulted in a treatment order. -Medications: Continue paliperidone by mouth 3 mg daily + 6 mg daily at bedtime for psychosis. Continue with haloperidol 5 mg twice a day IM when necessary if patient refuses oral invega medication. Added on Cogentin 0.5 mg twice a day when necessary IM for EPS prophylaxis. Patient will need to be transitioned onto Invega Sustenna prior to discharge. -When necessary Ativan and Geodon for agitation/aggression. -NRT - nicotine patch -SW on board for discharge planning. Encouraged the patient to participate in milieu. Patient is currently on a active treatment order which was issued on 01/15/2020. We'll continue to work with patient to improve her symptoms and her psychosis and prepare patient for discharge when she is stable.
[2020-01-21] MEDS: PALIPERIDONE 6 MG TAB.ER.24 PO SCH (20:19)
[2020-01-22] MEDS: PALIPERIDONE 3 MG TAB.ER.24 PO SCH (09:30)
[2020-01-22] MEDS: NICOTINE 14MG/24HR PATCH TRANSDERM SCH (09:30)
--- NOTE | 2020-01-22 09:40 | P.PN ---
Progress Note - Text Progress Note Date: 01/22/20 Interval History: Patient was seen in her room this morning and was more directable and agreeable to speak to sports book writer in the office today. Patient was noted to be continuing to be talking under her breath at times. Patient appeared to be mildly more appropriate with sports book writer during conversation. She claims that she did shower yesterday and looked to have mildly improved hygiene and grooming. She continues to speak about the court process and claiming that the sports book writer stated that she was "delusional". She also states that she needs to eventually go down to [place] to the court and claims that "I can't tell you about it because it still in court". She continues to have poor reality testing. She did not go to groups yesterday and claims that "I didn't hear them call me for group". She continues to endorse some paranoia. Patient was more organized in her thought process. She states that the medication is helping her "think clearer". States that she was able sleep throughout the night. She has not been going to groups however was encouraged to do so. She denies any suicidal homicidal ideations intent or plan and denies any auditory or visual hallucinations. Mental Status Exam: General Appearance: Patient appears to be stated age is alert, mildly more directable, continues to be argumentative. Patient appears to have improved hygiene and grooming. Behavior: Patient is seated without any agitated behavior. less argumentative. Defensive/guarded. Speech: Patient's speech is fluent and nonpressured. Mood/Affect: States her mood is "ok" affect is constricted Suicidality/Homicidality: Denies Perceptions: Does not endorse any auditory or visual hallucinations at this time. Though content/process: argumentative. Less paranoid today and less bizarre. More goal oriented Memory and concentration: AOX3, grossly intact for the purposes of this session. Judgment and insight: poor, mildly improving. Assessment Psychosis unspecified Nicotine dependence Plan: -Patient continues to meet criteria for inpatient psychiatric admission for symptom stabilization and safety. Patient refused to sign for medication consent form and is placed in chart. Patient had a court hearing on 01/15/2020 which resulted in a treatment order. -Medications: Increased paliperidone by mouth 6 mg twice a day for psychosis. Continue with haloperidol 5 mg twice a day IM when necessary if patient refuses oral invega medication. Continue Cogentin 0.5 mg twice a day when necessary IM for EPS prophylaxis. Patient will need to be transitioned onto Invega Sustenna prior to discharge. -When necessary Ativan and Geodon for agitation/aggression. -NRT - nicotine patch -SW on board for discharge planning. Encouraged the patient to participate in milieu. Patient is currently on a active treatment order which was issued on 01/15/2020. We'll continue to work with patient to improve her symptoms and her psychosis and prepare patient for discharge when she is stable.
[2020-01-22] MEDS: PALIPERIDONE 6 MG TAB.ER.24 PO SCH (21:43)
[2020-01-23] MEDS: PALIPERIDONE 6 MG TAB.ER.24 PO SCH ×2 (09:10→21:44)
[2020-01-23] MEDS: NICOTINE 14MG/24HR PATCH TRANSDERM SCH (09:10)
--- NOTE | 2020-01-23 10:03 | P.PN ---
Progress Note - Text Progress Note Date: 01/23/20 Interval History: Patient was seen in her room this morning and was more directable and agreeable to speak to tag writer in the office today. Patient continues to speak under her breath at times and was pointing at the exit door as she was walking to tag writer's office and when asked about if patient states that "I thought your office was through that door". She continues to have poor insight and was fairly argumentative with tag writer and insisting on discharge. Patient apparently refused paliperidone dose last night however claims that she took the medication and states that "if the nurses didn't give it to me than I didn't take it". She claims that she did go to group yesterday however left after a few minutes. She continues to isolate in her room. She claims that she spoke more about her court case in [place] and states that "it's a criminal case that I don't know much about it". And she also spoke about where she lives in [place] with another person in a townhouse. States that she was able sleep throughout the night. She denies any suicidal homicidal ideations intent or plan and denies any auditory or visual hallucinations. Patient was insisting on discharge today and was resistant to leave tag writer's office asking several times to be transferred to another hospital and needed to be escorted out of the office. Mental Status Exam: General Appearance: Patient appears to be stated age is alert, not directable today, continues to be argumentative. Patient appears to have improved hygiene and grooming. Behavior: Patient is seated without any agitated behavior. argumentative. Defensive/guarded. Speech: Patient's speech is fluent and nonpressured. Mood/Affect: States her mood is "fine" affect is constricted Suicidality/Homicidality: Denies Perceptions: Does not endorse any auditory or visual hallucinations at this time. Though content/process: argumentative. Less paranoid today and bizarre. More goal oriented. Rambles. Memory and concentration: AOX3, grossly intact for the purposes of this session. Judgment and insight: poor Assessment Psychosis unspecified Nicotine dependence Plan: -Patient continues to meet criteria for inpatient psychiatric admission for symptom stabilization and safety. Patient refused to sign for medication consent form and is placed in chart. Patient had a court hearing on 01/15/2020 which resulted in a treatment order. -Medications: Continue with paliperidone by mouth 6 mg twice a day for psychosis. Continue with haloperidol 5 mg twice a day IM when necessary if patient refuses oral invega medication. Continue Cogentin 0.5 mg twice a day when necessary IM for EPS prophylaxis. Patient will need to be transitioned onto Invega Sustenna prior to discharge. -When necessary Ativan and Geodon for agitation/aggression. -NRT - nicotine patch -SW on board for discharge planning. Encouraged the patient to participate in milieu. Patient is currently on a active treatment order which was issued on 01/15/2020. We'll continue to work with patient to improve her symptoms and her psychosis and prepare patient for discharge when she is stable.
[2020-01-24] MEDS: PALIPERIDONE 6 MG TAB.ER.24 PO SCH ×2 (10:22→20:42)
[2020-01-24] MEDS: NICOTINE 14MG/24HR PATCH TRANSDERM SCH (10:29)
--- NOTE | 2020-01-24 13:08 | P.PN ---
Subjective Progress Note Date: 01/24/20 Patient was seen and the chart was reviewed. The patient is superficially pleasant and cooperative during the session. She reports fair sleep and appetite. The patient remained very evasive with the information and shows lack of insight into her illness. The patient reports fair sleep and appetite. The patient continues to be withdrawn and isolating herself in her room. The patient reports that she attended one group. She was directable and agreeable to speak to me in the office. She spoke about where she lives in [place] with another person in a townhouse. She denies any suicidal homicidal ideations intent or plan and denies any auditory or visual hallucinations. Objective - Vital Signs Vital signs: Vital Signs Temp 0 F L 01/23/20 06:59 Pulse 53 L 01/05/20 21:29 Resp 18 01/09/20 05:04 BP 141/87 01/05/20 21:29 Pulse Ox 99 01/05/20 21:29 - Exam Mental Status Exam: General Appearance: Patient appears to be stated age is alert, directable and superficially pleasant and cooperative. She is dressed in hospital gown and shows fair grooming.. Behavior: Patient is seated without any agitated behavior. She appears to be very guarded and evasive. Speech: Patient's speech is fluent and nonpressured. Mood/Affect: States her mood is "fine" affect is constricted Suicidality/Homicidality: Denies Perceptions: Does not endorse any auditory or visual hallucinations at this time. Though content/process: Goal directed and linear. She remains very evasive. Memory and concentration: AOX3, grossly intact for the purposes of this session. Judgment and insight: poor Assessment and Plan Assessment: Assessment Psychosis unspecified Nicotine dependence Plan: Plan: -Patient continues to meet criteria for inpatient psychiatric admission for symptom stabilization and safety. The patient is on a court ordered for treatment. -Medications: Continue with paliperidone by mouth 6 mg twice a day for psychosis. Encouraged the patient to participate in milieu. Continue with haloperidol 5 mg twice a day IM when necessary if patient refuses oral invega medication. Continue Cogentin 0.5 mg twice a day when necessary IM for EPS prophylaxis. Patient will need to be transitioned onto Invega Sustenna prior to discharge. -When necessary Atene and Massimodon for agitation/aggression. -NRT - nicotine patch -SW on board for discharge planning. Patient is currently on a active treatment order which was issued on 01/15/2020. We'll continue to work with patient to improve her symptoms and her psychosis and prepare patient for discharge when she is stable.
[2020-01-25] MEDS: NICOTINE 14MG/24HR PATCH TRANSDERM SCH (10:33)
[2020-01-25] MEDS: PALIPERIDONE 6 MG TAB.ER.24 PO SCH ×2 (10:33→21:43)
--- NOTE | 2020-01-25 13:06 | P.PN ---
Progress Note - Text Interval history: The patient's found in her room she follows me to an interview room. She indicates her mood is fine. She states that she's been here for numerous days and would like to be discharged. She reports that she has no family or friends in this area and go back to [place] upon discharge. She was admitted for symptoms of psychosis. She is on an invega it appears she has been complying with the invega dose. She denies having any symptoms. When asking some demographic background question she refuses to answer and appears guarded and suspicious. Mental status exam: The patient is an alert -[place] female appearing her stated age, she shorter in stature overweight she has short hair. Eye contact is appropriate speech is fluent and spontaneous nonpressured. Overall she appears guarded and suspicious. She reports having no symptoms however she is focused on being discharged. She specifically denies having any auditory or visual hallucinations or specific delusions. As we are walking to the conference room I could hear her whispering to herself as she walked behind me. She reports no suicidal or homicidal ideation intent or plan. Insight and judgment appear to be impaired. She demonstrates no verbal or physical aggressiveness she demonstrates no involuntary repetitive movements. Plan: The patient will continue on her current psychotropic medication. She is encouraged to participate in the milieu we will monitor her for safety. Vital signs reviewed. She requires continued psychiatric hospitalization.
[2020-01-26] MEDS: PALIPERIDONE 6 MG TAB.ER.24 PO SCH ×2 (07:39→21:33)
[2020-01-26] MEDS: NICOTINE 14MG/24HR PATCH TRANSDERM SCH (07:39)
--- NOTE | 2020-01-26 13:03 | P.PN ---
Progress Note - Text Interval history: The patient is found in her room she follows me to an interview room. She indicates her mood is fine. She has been isolating in her room all morning I did not see her out in the milieu. She reports that she did not eat breakfast but she will eat lunch. She participated in no groups. She has been compliant with the oral invega. She continues to be focused on discharge. She lacks insight into the reason for this admission. She asked for help in trying to find where her car was towed. She has no questions or concerns regarding her treatment today. Mental status exam: The patient is an overweight -[place] female appearing her stated age. She is dressed in hospital gowns. Hygiene grooming fair. Eye contact is appropriate speech is fluent. She has little spontaneous speech but does provide brief answers to questions. She reports no hopelessness thinking no suicidal ideation intent or plan. She is reporting no auditory or visual hallucinations or any specific delusions. She is likely underreporting symptoms of psychosis. She continues to appear guarded and suspicious. She is reluctant to provide any detail with questioning. She demonstrates no verbal or physical aggressiveness she demonstrates no involuntary repetitive movements. Plan: The patient will continue on her current psychotropic medications. We will continue to monitor her for safety. She is encouraged to come out of her room and participate in the milieu or at least walking the hallways for exercise. Vital signs reviewed. She requires continued psychiatric hospitalization.
[2020-01-27] MEDS: NICOTINE 14MG/24HR PATCH TRANSDERM SCH (09:35)
[2020-01-27] MEDS: PALIPERIDONE 6 MG TAB.ER.24 PO SCH (10:39)
[2020-01-27] MEDS ORDERED: PALIPERIDONE IM 234 MG/1.5 ML SYG IM STA (11:23)
--- NOTE | 2020-01-27 11:28 | P.PN ---
Progress Note - Text Progress Note Date: 01/27/20 Interval History: Patient was seen in her room this morning and was more directable and agreeable to speak to narrative writer in the office today. Patient appeared to be much more appropriate this morning with narrative writer and was not responding to internal stimuli or speaking under her breath. Patient was less hostile and argumentative. She did not offer any complaints over the weekend and states that she has been taking her medications consistently. She states that she feels less paranoid and "able to trust others". Patient did not endorse any delusions at this time and states that she wants to find out where bank is and also where her car and be picked up from. She claims that she would like to head back to [place] where she is from and plans to drive back. States that she was able sleep throughout the night. She claims that she has been going to groups and participating it doesn't she can. She denies any suicidal homicidal ideations intent or plan and denies any auditory or visual hallucinations. Mental Status Exam: General Appearance: Patient appears to be stated age is alert, more directable today, less argumentative. Patient appears to have improved hygiene and grooming. Behavior: Patient is seated without any agitated behavior. Less argumentative and more directable. Speech: Patient's speech is fluent and nonpressured. Mood/Affect: States her mood is "ok" affect is constricted Suicidality/Homicidality: Denies Perceptions: Does not endorse any auditory or visual hallucinations at this time. Though content/process: Less argumentative and More goal oriented and logical. Memory and concentration: AOX3, grossly intact for the purposes of this session. Judgment and insight: Improving mildly Assessment Schizophrenia Nicotine dependence Plan: -Patient continues to meet criteria for inpatient psychiatric admission for symptom stabilization and safety. Patient refused to sign for medication consent form and is placed in chart. Patient had a court hearing on 01/15/2020 which resulted in a treatment order. -Medications: Decreased paliperidone by mouth 3 mg at night +6 mg daily for psychosis with plan to titrate off. Patient will be given Invega Sustenna loading dose 234 mg IM today and will be due for her next dose on 02/03/2020 of 156 mg. Continue with haloperidol 5 mg twice a day IM when necessary if patient refuses oral invega medication. Continue Cogentin 0.5 mg twice a day when necessary IM for EPS prophylaxis. -When necessary Ativan and Geodon for agitation/aggression. -NRT - nicotine patch - on board for discharge planning. Encouraged the patient to participate in milieu. Patient is currently on a active treatment order which was issued on 01/15/2020. Patient appears to be clinically stabilizing and more rational with improved insight and judgment and will likely be discharged tomorrow. Patient's outpatient follow-up will be with [facility].
[2020-01-27] MEDS ORDERED: PALIPERIDONE 3 MG TAB.ER.24 PO SCH (21:00)
[2020-01-28] MEDS: NICOTINE 14MG/24HR PATCH TRANSDERM SCH (08:22)
[2020-01-28] MEDS: PALIPERIDONE 6 MG TAB.ER.24 PO SCH (08:48)
--- NOTE | 2020-01-28 09:38 | P.DS ---
Providers Date of admission: 01/05/20 19:53 Expected date of discharge: 01/28/20 Attending physician: Kimo Alvarez MD Consults: 01/06/20 07:34 Consult Physician Routine Consulting Provider: Rajinder Watts Consult Reason/Comments: medical h and p Do you want consulting provider notified?: Yes Primary care physician: Stated None - Discharge Diagnosis(es) (1) Schizophrenia Current Visit: Yes Status: Acute Priority: High (2) Nicotine dependence Current Visit: Yes Status: Acute Priority: Low Hospital Course: Admission HPI: The patient is 44-year-old single female referred from medicine service from [facility] for evaluation of psychotic behavior. Patient is single and is currently homeless and living in hotels and has no kids and collects a pension. Patient was initially transferred to medical floors and seen by Dr. Loo for psychiatric consultation. As taken from Dr. Loo's psychiatric consult dictation note, "Patient was guarded, suspicious and minimally cooperative. According to record she eloped from [facility]. She talked about driving her car to the store and "some kind of air" began to blow on her and affected her chest. She is not sure but she thinks the gas may have been carbon monoxide because she felt lightheaded. She went to the emergency room where she remained for 3 days. She would not provide more information about her history of her symptoms. She would not answer questions about her mood thinking or behavior. She denied feeling depressed or anxious. She would not answer questions about psychotic symptoms such as auditory, visual or olfactory hallucinations, ideas reference, thought insertion or thought broadcasting" Patient was seen today by conventional underwriter and appeared to have poor hygie ne and grooming. Patient was endorsing paranoia and was guarded/evasive during conversation. Patient was making bizarre hand gestures at times and making inappropriate statements or conventional underwriter. Patient spoke about "exhaust coming out of my car" and states that she was inhaling it and took it to several different mechanics before coming into the hospital for feeling "dizzy". She states that she felt "overheated" and also a "pounding in my body". She also spoke about having to go do "cord in [place]". She appeared to have poor insight and judgment and was refusing medications. She states that [place] however did not explain why or where she came from. She states her sleep is "okay" and claims to have a fair mood. She denies any auditory or visual hallucinations, denies any suicidal or homicidal ideations intent or plan. Patient was alert and oriented 3 today. She denied any recreational drug use however claims to use cigarettes. Hospital course: Upon admission to the unit patient was initially bizarre, psychotic and paranoid. Patient was not directable and refused to engage with medications and treatment on the unit and to medical certificates and petition were filed for court and patient had a court hearing on 01/15/2020 which resulted in a treatment order. Due to patient's paranoia it was difficult for patient to commence treatment and take medications however with time patient eventually started taking medications and began gradually improving. Patient followed unit protocol. Patient was compliant with the medications and denied any side effects throughout hospital course. Patient was started on paliperidone by mouth and titrated up to a dose of 6 mg twice a day for psychosis. The patient was then transitioned onto Invega Sustenna and given a loading dose of 234 mg IM on 01/27/2020 and tolerated it well and will be due for her next dose of 156 mg IM on 02/03/2020 and maintenance dose of 234 mg on 02/24/2020 and monthly t hereafter. Patient spoke of her stressors and engaged in therapy both group and individual. Patient was also seen by medical team for history and physical exam. Throughout the course of the hospitalization patient gradually improved with regards to paranoia, psychosis, sleep and became more future oriented with improved insight and judgment. On the day of discharge patient denied any suicidal or homicidal ideations intent or plan denied any auditory or visual hallucinations. Patient endorsed wanting to live for God and her future. The patient denied any access to guns or weapons. Patient denied any paranoia and did not endorse any delusions. Patient does not have a significant history of substance abuse however was counseled on abstaining from all substances including alcohol and marijuana. Patient was also counseled on the medications and need for regular compliance and was encouraged to follow-up with their outpatient appointment for mental health and also for primary care. Prior to discharge, patient will be set up with [facility] for outpatient care and if patient decides to return to [place], patient's care can be transferred to her local mental health clinic for continuation of care. Mental status exam: General Appearance: Patient appears to be overweight, stated age is alert, pleasant, and cooperative. Patient is in no acute distress and has fair hygiene and grooming Behavior: Patient is calmly seated without any agitated behavior. Cooperative. Speech: Patient's speech is fluent and nonpressured. Mood/Affect: Patient reports their mood is "good", affect is congruent and constricted. Suicidality/Homicidality: Patient denies having any suicidal or homicidal ideation intent or plan. Perceptions: Patient denies any auditory or visual hallucinations. Though content/process: There is no evidence of any delusional thought content and thought process is linear and goal-directed. [place]. Memory and concentration: AOX3, grossly intact for the purposes of this session. Can spell "WORLD" backwards correctly. Judgment and insight: Improved with guarded prognosis Impression: Schizophrenia Nicotine dependence Plan: -Continue with discharge today as patient has improved and stabilized psychiatrically and is not currently an imminent threat to herself and/or others. -Continue medications: Paliperidone by mouth decreased down to 6 mg daily at bedtime for psychosis for 2 days and then decreased to 3 mg for 2 days and then titrated off. This was explained to patient in detail and patient verbally understood and agreed. Patient was transitioned onto Invega Sustenna and given a loading dose of 234 mg IM on 01/27/2020 and tolerated it well and will be due for her next dose of 156 mg IM on 02/03/2020 and maintenance dose of 234 mg on 02/24/2020 and monthly thereafter. -Patient was counseled on the need for medication compliance and appropriate follow-up at mental health and also primary care for medical issues. Patient verbalized understanding and agreed. -Social work to arrange for patient to get a ride to her car and also ensure that [facility] received paperwork as patient is on a active court order starting from 01/15/2020. Social work also to arrange for patients follow up appointments with [facility] for psychiatric care along with follow up with primary care provider. -Patient counseled on abstaining from recreational drugs and marijuana and alcoh ol. Was informed/educated on the adverse effects on their physical and mental health. Patient verbally agreed and understood. -Patient was instructed to return to the hospital or seek immediate medical care if their psychiatric or medical symptoms do worsen or reoccur. Allergies Allergy/AdvReac Type Severity Reaction Status Date / Time Unable to Assess Allergy Verified 01/03/20 22:08 Vital Signs Temp 0 F L 01/26/20 07:03 Pulse 53 L 01/05/20 21:29 Resp 18 01/09/20 05:04 BP 141/87 01/05/20 21:29 Pulse Ox 99 01/05/20 21:29 Patient Condition at Discharge: Stable Plan - Discharge Summary New Discharge Prescriptions: New Nicotine 14Mg/24Hr Patch [Habitrol] 1 patch TRANSDERM DAILY 14 Days patch Paliperidone [Invega] 3 mg PO HS 2 Days #2 tab.er.24 Paliperidone [Invega] 6 mg PO HS 2 Days #2 tab.er.24 Acetaminophen Tab [Tylenol] 650 mg PO Q4HR PRN tab PRN Reason: Pain/Discomfort Discharge Medication List Acetaminophen Tab [Tylenol] 650 mg PO Q4HR PRN tab 01/28/20 [Rx] Nicotine 14Mg/24Hr Patch [Habitrol] 1 patch TRANSDERM DAILY 14 Days patch 01/28/20 [Rx] Paliperidone [Invega] 3 mg PO HS 2 Days #2 tab.er.24 01/28/20 [Rx] Paliperidone [Invega] 6 mg PO HS 2 Days #2 tab.er.24 01/28/20 [Rx] Activity/Diet/Wound Care/Special Instructions: Activity and diet as tolerated. Avoid the use of street drugs and alcohol. Take all medications as prescribed. When you are in need of refills on your medications please contact your medical provider and/or outpatient psychiatrist to have this done. Please go to scheduled outpatient appointment for aftercare treatment. If symptoms return or become worse, call the crisis line at and/or go to the nearest emergency room for evaluation. Discharge Disposition: HOME SELF-CARE
[2020-01-28] MEDS ORDERED: PALIPERIDONE 6 MG TAB.ER.24 PO SCH (21:00)
== END 2020-01-28 12:20 | disposition home or self-care (01) | DRG 885 ==
LOC: 3MHU 19:53
PROVIDERS: ADMIT Psychiatry & Neurology Psychiatry; ATTEND Psychiatry & Neurology Psychiatry
DX: F20.9 Schizophrenia, unspecified (principal); E11.9 Type 2 diabetes mellitus without complications; Z59.0 Homelessness; F17.210 Nicotine dependence, cigarettes, uncomplicated; E66.9 Obesity, unspecified; Z68.36 Body mass index [BMI] 36.0-36.9, adult; Z79.899 Other long term (current) drug therapy; Z71.51 Drug abuse counseling and surveillance of drug abuser; Z71.3 Dietary counseling and surveillance